=== PATIENT | female | born 1980 | race African-American/Black ===

== ENCOUNTER 2024-04-19 10:41 | Emergency (ER) | payer SELFPAY ==
[2024-04-19] MEDS ORDERED: Dexamethasone 10 MG/ML VIAL ONE (11:08)
== END 2024-04-19 11:12 | disposition home or self-care (01) ==
LOC: ERS 10:41
DX: L30.1 Dyshidrosis [pompholyx] (principal)
CPT/HCPCS: 96372; 99282; J1100